=== PATIENT | female | born 1980 | race Two or more races ===

== ENCOUNTER 2020-07-22 21:22 | Emergency (ER) | payer MEDICAID ==
[~2020-07-22] VITALS: Ht 177.8 cm; Wt 72.6 kg
--- NOTE | 2020-07-22 22:46 | NUR ---
pt bibself c/o of back and neck pain that radiates left arm and makes her fingers tingle x10 days. pt [id number] breathing evenly and unlabored. Pt states "i think its from the air conditioner at work" Pt has taken motrin, but feels no relief. Pt attached to monitor and pox. at bedside for eval. Pt given balnket and call light within reach
--- NOTE | 2020-07-22 23:08 | NUR ---
verbal order 60 toradol IM
[2020-07-22] MEDS ORDERED: KETOROLAC TROMETHAMINE INJ 60 MG/2 ML VIAL IM ONE (23:10)
[2020-07-22] MEDS ORDERED: NAPR-1164 PO (23:18)
[2020-07-22] MEDS ORDERED: DIAZ5TAB PO (23:18)
--- NOTE | 2020-07-22 23:38 | NUR ---
Patient discharged to home in stable condition. Written and verbal after care instructions given. Patient verbalizes understanding of instruction. Pt ambulatory with a steady gait
[2020-07-22 23:45] VITALS: BP 125/88
[2020-07-23] MEDS ORDERED: KETOROLAC TROMETHAMINE INJ 60 MG/2 ML VIAL IM ONE
== END 2020-07-22 23:28 | disposition home or self-care (01) ==
LOC: ER 21:26
DX: M54.10 Radiculopathy, site unspecified (principal); Z90.89 Acquired absence of other organs; Z90.49 Acquired absence of other specified parts of digestive tract; Z98.890 Other specified postprocedural states; Z79.899 Other long term (current) drug therapy
CPT/HCPCS: 96372; 99283; J1885